=== PATIENT | female | born 1960 | race Caucasian/White ===

== ENCOUNTER → 2024-06-21 | Outpatient (CLI) | payer MEDICAID, SELFPAY | END | disposition home or self-care (01) | PROVIDERS: PCP Physician Assistant; Referring Provider Physician Assistant; Visit Provider Student in an Organized Health Care Education/Training Program | DX: I87.313 Chronic venous hypertension (idiopathic) with ulcer of bilateral lower extremity (principal); L97.822 Non-pressure chronic ulcer of other part of left lower leg with fat layer exposed; L97.812 Non-pressure chronic ulcer of other part of right lower leg with fat layer exposed; I10 Essential (primary) hypertension; R60.0 Localized edema; E66.9 Obesity, unspecified; F41.9 Anxiety disorder, unspecified; J45.909 Unspecified asthma, uncomplicated | CPT/HCPCS: 11042; 11045 ×5; 99213; A9270; G0463 ==

== ENCOUNTER → 2024-07-12 | Outpatient (CLI) | payer MEDICAID, SELFPAY | END | disposition home or self-care (01) | PROVIDERS: PCP Physician Assistant; Referring Provider Physician Assistant; Visit Provider Student in an Organized Health Care Education/Training Program | DX: L97.822 Non-pressure chronic ulcer of other part of left lower leg with fat layer exposed (principal); L97.812 Non-pressure chronic ulcer of other part of right lower leg with fat layer exposed; I10 Essential (primary) hypertension; R60.0 Localized edema; E66.9 Obesity, unspecified; F41.9 Anxiety disorder, unspecified; J45.909 Unspecified asthma, uncomplicated | CPT/HCPCS: 29580; A9270 ==

== ENCOUNTER 2024-08-07 12:12 | Emergency (ER) | payer MEDICAID, SELFPAY ==
[2024-08-07 12:13] VITALS: BMI 48.8
[2024-08-07 12:28] VITALS: BP 183/120; BP 187/118; PULSE 97; RESP 20; TEMP 36.9; O2SAT 97; BMI 48.8
--- NOTE | 2024-08-07 12:30 | XR_ITS ---
Examination: Ankle Bilateral, 6 views Technique: AP oblique lateral each ankle total 6 views Exam date and time: August 07, 2024 at 1322 hours INDICATIONS: Nonhealing wounds both ankles noticed beginning one month ago. FINDINGS: Soft tissue defect medial left ankle Soft tissue defect lateral right ankle Prominent osteopenia Periosteal new bone along the lateral distal right fibular shaft No fracture IMPRESSION: Early osteomyelitis involving the distal right fibular shaft, consider MRI right ankle without contrast follow-up
--- NOTE | 2024-08-07 12:31 | PD.EDRME ---
Rapid Medical Screening Exam RME Arrival date/time: 08/07/24 12:12 64-year-old female presents emergency department complaint of bilateral lower extremity swelling and infection Chief Complaint: Wound/Laceration Time Seen by Provider: 08/07/24 12:15 Vital signs: Vital Signs Temperature 98.5 F 08/07/24 12:28 Pulse Rate 97 08/07/24 12:28 Respiratory Rate 20 08/07/24 12:28 Blood Pressure 183/120 H 08/07/24 12:28 Pulse Oximetry (%) 97 08/07/24 12:28 Oxygen Delivery Method Room Air 08/07/24 12:28
[2024-08-07] MEDS: traMADol HCL 50 MG TABLET PO (12:35)
[2024-08-07 12:52] LABS: Lactate (Lactic Acid) 0.8 mMol/L (0.4-2.0)
[2024-08-07 12:55] LABS: Basophils # (Auto) 0.1 Thou/mm3 (0.0-0.2); Basophils % (Auto) 1 % (0-2.5); Eosinophils # (Auto) 0.3 Thou/mm3 (0.0-0.5); Eosinophils % (Auto) 3 % (0-10); Hematocrit 35.6 % (36.0-46.0); Hemoglobin 11.6 g/dL (12.0-16.0); Immature Granulocytes % (Auto) 0 % (0-0); Immature Granulocytes Auto 0.03 Thou/mm3 (0.00-0.00); Lymphocytes # (Auto) 2.1 Thou/mm3 (1.0-4.8); Lymphocytes % (Auto) 20 % (10-50); Mean Corpuscular HGB Conc 32.6 g/dl (31.0-37.0); Mean Corpuscular Hemoglobin 28.4 pg (25.0-35.0); Mean Corpuscular Volume 87 fL (80-100); Monocytes # (Auto) 0.7 Thou/mm3 (0.0-0.8); Monocytes % (Auto) 7 % (0-12); Neutrophils # (Auto) 7.3 Thou/mm3 (1.8-7.7); Neutrophils % (Auto) 70 % (37-80); Nucleated Red Blood Cell % 0 /100 WBC (0); Platelet Count 443 Thou/mm3 (140-440); RDW Standard Deviation 46.8 fL (36.4-46.3); Red Blood Count 4.08 Miln/mm3 (4.00-5.20); White Blood Count 10.4 Thou/mm3 (3.6-11.0)
[2024-08-07 13:06] LABS: Sed Rate (ESR) 88 mm/hr (0-30)
[2024-08-07 13:18] LABS: Alanine Aminotransferase 12 U/L (10-49); Albumin, Serum 4.1 gm/dL (3.4-4.8); Albumin/Globulin Ratio 1.2 (1.2-2.2); Alkaline Phosphatase 88 U/L (46-116); Anion Gap 6 (7-16); Aspartate Amino Transferase 19 U/L (0-34); BUN/Creatinine Ratio 18 Ratio (12-20); Bilirubin,Total 0.4 mg/dL (0.3-1.2); Blood Urea Nitrogen 20 mg/dL (9-23); Calcium 8.9 mg/dL (8.3-10.6); Calcium (Corrected) 8.9 mg/dL (8.5-10.1); Carbon Dioxide 26.6 mMol/L (20.0-31.0); Chloride 106 mMol/L (98-107); Creatinine (Component) 1.1 mg/dL (0.6-1.3); Estimated Creatinine Clearance 86.4 mL/min (>60); Globulin 3.5 gm/dL (2.3-3.5); Glucose 114 mg/dL (74-106); Osmolality,Calculated 281 (275-295); Potassium 3.6 mMol/L (3.4-5.1); Procalcitonin 0.09 ng/ml (0.0-0.49); Sodium 139 mMol/L (136-145); Total Protein 7.6 gm/dL (5.7-8.2); eGFR 56 See Note
[2024-08-07 15:25] VITALS: BP 190/135; BP 198/121; PULSE 96; RESP 22; TEMP 36.8; O2SAT 97
--- NOTE | 2024-08-07 16:53 | PD.EDADULT ---
ED General RME/HPI General Chief complaint: Wound/Laceration Stated complaint: KENNA CHRONIC ANKLE WOUNDS OPEN Time Seen by Provider: 08/07/24 12:15 Arrival date/time: 08/07/24 12:12 CC: Bilateral chronic ankle open ulcerations HPI ongoing for 4 years but worse in the last 7 months after the patient took a shower and that both sites opened up after closing. Patient did not go to [facility] wound management today secondary to the pain patient denies fever chills chest pain shortness of breath or difficulty breathing. No other complaints at this time. RME / HPI RME / HPI narrative: 08/07/24 12:12 64-year-old female presents emergency department complaint of bilateral lower extremity swelling and infection Related Data Previous Rx's ?Medication ?Instructions ?Recorded doxycycline monohydrate 100 mg 100 mg PO BID #20 caps 09/04/21 capsule hydrocodone 5 mg-acetaminophen 325 1 tab PO BID PRN pain #14 tabs 06/21/24 mg tablet Allergies Allergy/AdvReac Type Severity Reaction Status Date / Time clavulanic acid Allergy Verified 08/07/24 12:16 [From Augmentin] Review of Systems Review of Systems Narrative Review of Systems: GEN: No fever, no chills, no weight loss EYES: No discharge, no visual changes, no pain HEENT: No ear pain, no congestion, no sore throat PULM: No shortness of breath, no cough, no congestion CV: No chest pain, no dyspnea on exertion, no palpitations GI: No nausea, no vomiting, no diarrhea, no pain, no constipation : No frequency, no urgency, no dysuria MUSC/SKEL: No joint pain, no back pain SKIN: Bilateral ankle ulceration no rash PSYCH: No hallucinations, no depression HEME/LYMPH: No easy bleeding or bruising tendencies NEURO: No weakness, no headache Past Medical History Social History SMOKING STATUS: Never smoker ED Exam Narrative Physical exam: [General: Morbidly obese in mild discomfort not in any acute distress Head normocephalic HEENT: Within acceptable limits Neck is supple nontender Chest equal chest rise nontender to palpation Respiratory: Clear to auscultation no wheezes crackles or rubs CV: Rate rhythm is regular no murmurs rubs or clicks Abdomen is distended secondary to body habitus soft nontender no masses positive bowel sounds all 4 quadrants Back: No CVA tenderness no spinous process tenderness from cervical spine thoracic and lumbar spine Skin: Open ulcerations to the anterior surface of both ankles right side worse than left these are extensive, both approximately 15 cm in width, 10 cm in height, both forming eschar. No surrounding erythema or edema no streaking up the legs. No open lesions to the dorsum of the soles of the feet there is mild erythema to the top of the foot. Otherwise skin is intact no petechiae rash induration ulceration or crepitus Extremities: Moving all extremity against resistance cap refill less than 2 seconds neurosensory intact Neuro: Awake alert oriented x3 Glascow coma 15 no focal deficits] Course Quality Measures none Orders Category Date Time Status Dressing Care/Change NEEDED Care 08/07/24 16:42 Active XR ankle comp BI min 3V Stat Exams 08/07/24 12:30 Completed Blood Culture (Lab) Stat Lab 08/07/24 12:31 Received CBC Stat Lab 08/07/24 12:38 Completed CMP [Comprehensive Metabolic Panel] Stat Lab 08/07/24 12:38 Completed CRP [C-Reactive Protein] Stat Lab 08/07/24 12:38 Completed Drug Screen,Urine Stat Lab 08/07/24 12:31 Ordered ESR [Sed Rate (ESR)] Stat Lab 08/07/24 12:38 Completed Lactic Acid [Lactate (Lactic Acid)] Stat Lab 08/07/24 12:38 Completed Procalcitonin Stat Lab 08/07/24 12:38 Completed UA, C/S IF [Urinalysis, C/S if Indicated] Stat Lab 08/07/24 12:31 Ordered hydrALAZINE HCL [Apresoline] Med 08/07/24 16:42 Discontinued 25 mg PO X1 ONE oxyCODONE/APAP 5/325 [Percocet 5/325] Med 08/07/24 16:43 Discontinued 1 tab PO X1 ONE traMADol HCL [Ultram] Med 08/07/24 12:30 Discontinued 50 mg PO X1 ONE Vital Signs Vital signs: Vital Signs Temperature 98.5 F 08/07/24 12:28 Pulse Rate 97 08/07/24 12:28 Respiratory Rate 20 08/07/24 12:28 Blood Pressure 183/120 H 08/07/24 12:28 Pulse Oximetry (%) 97 08/07/24 12:28 Oxygen Delivery Method Room Air 08/07/24 12:28 [facility] Patient data External records reviewed:: [facility] previous records Clinical information provided by:: patient Social determinants that could affect healthcare access:: none Patient has the following chronic illnesses:: Morbid obesity hypertension How is presenting disease/condition affected by chronic disease/condition?: uneffected by Evaluation data The following diagnostics were reviewed and interpreted by me:: lab results and radiology exam(s) Lab and/or radiology exams considered but not ordered:: CBC shows no leukocytosis mild anemia, no thrombocytopenia CMP shows no acute electrolyte imbalances renal impairment transaminitis or T. bili elevation C-reactive quadrant of 6.0 X-ray shows a patient's right tibia has early osteomyelitis as interpreted by me read by radiology. Nursing Interpretation Summary: Open ankle ulcerations chronic in nature and I suspect this is chronic osteomyelitis. Patient will be discharged back home she has to follow-up with wound management her primary care doctor and may need a referral out for pain management. There is no acute finding for emergency standpoint that requires immediate intervention. Medications Medications considered but not ordered:: None Medication administrations:: Medication Administration History Discontinued Medications Hydralazine HCl (Hydralazine Hcl 25 Mg Tablet) 25 mg PO X1 ONE Stop: 08/07/24 16:43 Oxycodone/Acetaminophen (Oxycodone/Apap 5/325 Tablet) 1 tab PO X1 ONE Stop: 08/07/24 16:44 Tramadol HCl (Tramadol Hcl 50 Mg Tablet) 50 mg PO X1 ONE Stop: 08/07/24 12:31 Last Admin: 08/07/24 12:35 Dose: 50 mg Documented By: KM None Consultations Consultation(s) initiated? (list below): No Diagnosis Differential Diagnosis ED Complaint MDM: Open ulcerations of the ankles osteomyelitis cellulitis Most likely diagnosis given after review of the tests above:: Ankle ulcers, osteomyelitis chronic Admission Indicated Admission indicated?: not indicated Explain why admission is indicated or not indicated:: Stable for outpatient follow-up Admission Request Was there a request for admission?: No Disposition Plan Disposition Plan: Discharge Discharge Attestation Discharge Attestation: The patient and all family members were given an opportunity to ask questions and understood the discharge instructions. Discharge instructions specifically effects, indications for sooner follow up or return to the emergency department, and the expected course of current diagnosis. Patient condition: Stable Medical Decision Making Differential Diagnosis Differential Diagnosis: Open ulcerations of the ankles osteomyelitis cellulitis Lab Data 08/07/24 12:38 08/07/24 12:38 Labs: Lab Results 08/07/24 Range/Units 12:38 WBC 10.4 (3.6-11.0) Thou/mm3 RBC 4.08 (4.00-5.20) Miln/mm3 Hgb 11.6 L (12.0-16.0) g/dL Hct 35.6 L (36.0-46.0) % MCV 87 (80-100) fL MCH 28.4 (25.0-35.0) pg MCHC 32.6 (31.0-37.0) g/dl RDW Std Deviation 46.8 H (36.4-46.3) fL Plt Count 443 H (140-440) Thou/mm3 Neut % (Auto) 70 (37-80) % Lymph % (Auto) 20 (10-50) % [place] % (Auto) 7 (0-12) % Eos % (Auto) 3 (0-10) % Baso % (Auto) 1 (0-2.5) % Neut # (Auto) 7.3 (1.8-7.7) Thou/mm3 Lymph # (Auto) 2.1 (1.0-4.8) Thou/mm3 [place] # (Auto) 0.7 (0.0-0.8) Thou/mm3 Eos # (Auto) 0.3 (0.0-0.5) Thou/mm3 Baso # (Auto) 0.1 (0.0-0.2) Thou/mm3 Immature Gran # (Auto) 0.03 H (0.00-0.00) Thou/mm3 Absolute Nucleated RBC 0.00 (0.00-0.00) Thou/mm3 Immature Gran % 0 (0-0) % Nucleated RBC % 0 (0) /100 WBC ESR 88 H (0-30) mm/hr Sodium 139 (136-145) mMol/L Potassium 3.6 (3.4-5.1) mMol/L Chloride 106 (98-107) mMol/L Carbon Dioxide 26.6 (20.0-31.0) mMol/L Anion Gap 6 L (7-16) BUN 20 (9-23) mg/dL Creatinine 1.1 (0.6-1.3) mg/dL Estim Creat Clear Calc 86.4 (>60) mL/min eGFR 56 L (60 - ) See Note BUN/Creatinine Ratio 18 (12-20) Ratio Glucose 114 H (74-106) mg/dL Calculated Osmolality 281 (275-295) Lactic Acid 0.8 (0.4-2.0) mMol/L Calcium 8.9 (8.3-10.6) mg/dL Corrected Calcium 8.9 (8.5-10.1) mg/dL Total Bilirubin 0.4 (0.3-1.2) mg/dL AST 19 (0-34) U/L ALT 12 (10-49) U/L Alkaline Phosphatase 88 (46-116) U/L C-Reactive Prot, Quant 6.0 H (0.0-0.9) mg/dL Total Protein 7.6 (5.7-8.2) gm/dL Albumin 4.1 (3.4-4.8) gm/dL Globulin 3.5 (2.3-3.5) gm/dL Albumin/Globulin Ratio 1.2 (1.2-2.2) Procalcitonin 0.09 (0.0-0.49) ng/ml Discharge Plan Plan Patient Disposition: HOME (Self Care) Patient condition on transfer: Stable Prescriptions/Referrals Prescriptions/Med Rec: No Action doxycycline monohydrate 100 mg capsule 100 mg PO BID Qty: 20 0RF hydrocodone-acetaminophen 5-325 mg tablet 1 tab PO BID MDD 10mg hydrocodone PRN (Reason: pain) Qty: 14 0RF Referrals: Jefe Simms PA-C [Primary Care Provider] - In 1 week Problem List Clinical Impression: Chronic skin ulcer of lower leg Patient/Caregiver Discharge Instructions Education Materials: Wound Care, ED Venous Leg Ulcer Additional Instructions: Follow-up with primary care suggest you follow-up with pain management continue with wound care, if there is a worsening redness streaks up your legs or fever return the emergency room for reevaluation. Print Language: Tongan Stand Alone Forms: [place] Award Info., Patient Portal Info Letter, Work/School Release PA/ALPHONSE Supervising Physician ANAHY/ALPHONSE Supervising Physician: Oleg Phillips ENP
[2024-08-07] MEDS: oxyCODONE/APAP 5/325 TABLET 1 TAB PO (17:09)
[2024-08-07 17:10] VITALS: BP 178/106; PULSE 95
[2024-08-07] MEDS: hydrALAZINE HCL 25 MG TABLET PO (17:10)
[2024-08-07 18:20] VITALS: BP 168/110
== END 2024-08-07 18:20 | disposition home or self-care (01) ==
PROVIDERS: Nurse Practitioner Primary Care; Emergency Provider Emergency Medicine; PCP Physician Assistant
DX: L97.329 Non-pressure chronic ulcer of left ankle with unspecified severity (principal); L97.319 Non-pressure chronic ulcer of right ankle with unspecified severity
CPT/HCPCS: 36415; 73610; 80053; 80307; 81001; 83605; 84145; 85025; 85652; 86140; 87040; 99283; A9270

== ENCOUNTER 2024-08-24 19:55 | Emergency (ER) | payer MEDICAID, SELFPAY ==
--- NOTE | 2024-08-24 19:58 | EDNOTE_ITS ---
ED CPR RME/HPI General Chief Complaint: Cardiac Arrest/CPR Stated Complaint: STAT CODE Time Seen by Provider: 08/24/24 20:20 Arrival date/time: 08/24/24 19:55 RME / HPI RME / HPI narrative: DR. MCKEON MAIN ED EVALUATION: 64 year old female presents to the Emergency Department CHRIS as a code blue, patient has been down since about 1940 hours, prior to arrival. Per EMS, it was a witnessed arrest, the patient was talking to her daughter when she collapsed. Per EMS, on scene patient was PEA in the 30's and started CPR and gained pulses but then about 5 minutes later at about 1950 hours she lost pulses. Upon ED arrival: patient had no signs of life, patient was pulseless, patient was immediately transferred to a gurney, and CPR was continued. No history or ROS obtainable by patient due to unresponsiveness. Last EPI before arrival by EMS was at 1953 hours. Per EMS, prior to collapsing, the patient had no complaints according to daughter. Related Data Previous Rx's ?Medication ?Instructions ?Recorded doxycycline monohydrate 100 mg 100 mg PO BID #20 caps 09/04/21 capsule hydrocodone 5 mg-acetaminophen 325 1 tab PO BID PRN pain #14 tabs 06/21/24 mg tablet Allergies Allergy/AdvReac Type Severity Reaction Status Date / Time clavulanic acid Allergy Verified 08/07/24 12:16 [From Augmentin] Review of Systems Review of Systems ROS Unobtainable: unobtainable due to mental status and unobtainable due to medical condition Past Medical History Past Medical History CARDIAC: Positive Hypertension Social History SMOKING STATUS: Never smoker SUBSTANCE USE: does not use ALCOHOL: Never ED Exam General General appearance: Present obese and other (Nonresponsive; unconscious. No pulse. No heart sounds.) Head Head exam: Present atraumatic Eye Eye exam: Present other (Pupils were fixed and dilated.) Neck Neck exam: Present normal inspection Chest Chest inspection: Present normal inspection Respiratory Respiratory exam: Present other (No spontaneous breathing.) Cardiovascular Cardiovascular exam: Present other (No pulse present. No heart sounds.) Abdominal Exam Abdominal exam: Present other (No deformity.) Back Exam Back exam: Present normal inspection Neurological Exam Neurological exam: Present other (Unconscious. Unable to examine.) Psychiatric Psychiatric exam: Present other (Unconscious. Unable to examine.) Skin Skin exam: Present mottled and other (Bilateral open wounds measuring about 8x8 cm between the ankle and dimas anteriorly with discharge. ) Course Course Course Narrative: 1954: Patient arrived as a oswald hernandez and was immediately seen by me. Oswald hernandez was called at 1952 hours, with an ETA of 2 minutes. Last EPI before arrival by EMS was at 3 hours. 2009: Intubation. 2009: Time of . 2133: Family arrived, discussed the patient's case with them in the conference room. Quality Measures none Procedures -ED Procedure Comment IO attempted, but not able due to obesity. Intubation Time out performed: Yes sedative: Etomidate Mg Given: 20 paralytic: Succinylcholine Mg Given: 100 Laryngoscope: fiber optic video scope Assist Device Used: fiber optic device ET Tube Size: 8 ET Tube Uncuffed: No Tube Secured Depth (cm): 25 Tube Secured Location: teeth Tube Placement Confirmation: visualized tube passing through cords, equal breath sounds bilaterally, no breath sounds over epigastrium and confirmation by capnometry Patient Tolerated Procedure: well and no complications Intubation Complications: none Cardiac Arrest / CPR MDM Narrative MDM Narrative:: IGracie am scribing for and in the presence of Dr. Mckeon. Patient data External records reviewed:: [facility] previous records (Reviewed last ED visit dated 08/07/24, discharged with the following: Chronic skin ulcer of lower leg.) and EMS form Clinical information provided by:: EMS Social determinants that could affect healthcare access:: none Patient has the following chronic illnesses:: Hypertension How is presenting disease/condition affected by chronic disease/condition?: exacerbated by Evaluation data The following diagnostics were reviewed and interpreted by me:: other (specify) (None, time of 2009.) Lab and/or radiology exams considered but not ordered:: none Interpretation Summary: Blood glucose 440. Medications / Prescriptions Medications or Prescriptions considered but not ordered:: none Medication administrations:: see above Consultations Consultation(s) initiated? (list below): No Diagnosis Cardiac arrest differential diagnosis: acute myocardial infarction, cardiac arrest and sudden cardiac Most likely diagnosis given after review of the tests above:: Cardiac arrest Admission Indicated Admission indicated?: not indicated Admission Request Was there a request for admission?: No Disposition Plan Disposition Plan: other (specify) (Patient ) Critical Care Time Critical Care Time Critical Care Time: Yes Total Critical Care Time (min.): 30 Attestation: The high probability of sudden, clinically significant deterioration in the patient?s condition required the highest level of my preparedness to intervene urgently. The services I provided to this patient were to treat and/or prevent clinically significant deterioration. Services included the following: chart data review, reviewing nursing notes and/or old charts, documentation time, domestic travel consultant collaboration regarding findings and treatment options, medication orders and management, direct patient care, vital sign assessments and ordering, interpreting and reviewing diagnostic studies and lab tests. Aggregate critical care time includes only time during which I was engaged in work directly related to the patient?s care, as described above, whether at bedside or elsewhere in the Emergency Department. It did not include time spent performing other reported procedures or the services of residents, students, nurses or physician assistants. Discharge Plan Plan Patient Disposition: Disposition Comment: Unstable Problem List Clinical Impression: Cardiac arrest Patient/Caregiver Discharge Instructions Print Language: Tamazight
--- NOTE | 2024-08-24 20:10 | PC.NURSE ---
TIME OF CALLED
--- NOTE | 2024-08-24 20:55 | PC.NURSE ---
S/T Marycarmen Stone with [facility] to report @ 2049
--- NOTE | 2024-08-24 20:59 | PC.NURSE ---
Addendum entered by Alin Cuba RN 08/24/24 21:05: Referral # [id number] Original Note: [facility]
--- NOTE | 2024-08-24 22:03 | PC.NURSE ---
S/T Huma Walters with [facility] and updated about pt situation referal # [id number]. Family (Daughter Sylvia Arroyo [phone]) has left the ER and has chosen [facility] was selected by family and notified. Received 1 hour ETA from home.
--- NOTE | 2024-08-25 00:04 | PC.NURSE ---
Ati with [facility] is taking custody of pt and moving them to the home
== END 2024-08-25 00:05 | disposition expired ==
PROVIDERS: Emergency Provider Emergency Medicine; PCP Physician Assistant
DX: I46.9 Cardiac arrest, cause unspecified (principal)
CPT/HCPCS: 31500; 99291; J0171